=== PATIENT | male | born 1960 | race Caucasian/White ===

== ENCOUNTER 2021-11-28 12:29 | Outpatient (CLI) | payer OTHER, SELFPAY ==
--- NOTE | 2021-11-28 12:56 | XR_ITS ---
WS: [id number] Sinus series, 3 views, 11/28/2021 Clinical Data: SINUS PAIN Comparison: None. Findings: The sinuses are clear. There are no air-fluid levels. No focal periosteal thickening is seen. The orb its are normal. XR/XR sinus min 3V* [id number] Impression: Negative sinus series.
== END 2021-11-28 12:30 | disposition home or self-care (01) ==
LOC: RAD 12:32
PROVIDERS: Visit Provider Radiology Diagnostic Radiology
DX: J34.89 Other specified disorders of nose and nasal sinuses (principal)
CPT/HCPCS: 70220